=== PATIENT | male | born 1980 | race African-American/Black ===

== ENCOUNTER 2021-01-20 22:54 | Emergency (ER) | payer BC, SELFPAY ==
--- NOTE | ~2021-01-20 | XR_ITS ---
EXAMINATION: XR ankle LT min 3V EXAM DATE: 01/20/2021 23:07 INDICATION: Left ankle pain laterally, injury, initial encounter. TECHNIQUE: Left ankle frontal, lateral and oblique projections obtained and reviewed. There is no pr ior study for comparison. FINDINGS: The left ankle mortise appears intact. There are no acute fractures or dislocations ident ified. There is no subcutaneous gas. There is soft tissue swelling over the ankle anterolaterally to . There are no radiopaque foreign bodies. IMPRESSION: 1. XR ankle LT min 3V exam without acute osseous findings. 2. Soft tissue swelling. Reviewed, dictated and finalized at location A.
[2021-01-20 22:56] VITALS: BP 158/88; PULSE 95; RESP 20; TEMP 36.2; O2SAT 99
--- NOTE | 2021-01-21 00:45 | ED.GENADULT ---
HPI - General Adult General Chief complaint: Extremity Injury, Lower Stated complaint: left ankle injury Time Seen by Provider: 01/21/21 00:40 Source: RN notes reviewed History of Present Illness HPI narrative: Patient presents to emergency department from home for left ankle pain. Patient states prior to arrival he was wrestling with his 8-year-old son when his left ankle was twisted. He states since that time he has had pain and swelling in his left lateral ankle that wraps around posteriorly to the other side of his ankle states pain with walking on the ankle states did not take anything for the pain he denies any other trauma or injury denies numbness or tingling Related Data Allergies Allergy/AdvReac Type Severity Reaction Status Date / Time No Known Allergies Allergy Verified 01/20/21 22:58 Review of Systems Review of Systems: Narrative: Gen.: Denies fevers or chills Musculoskeletal: See HPI Neuro: Denies numbness, tingling, weakness Skin: Denies rash Endo: Denies DM PMFSH Past Medical History Medical History (Updated 01/21/21 @ 00:48 by Bjorn Zuniga DO) Hypertension Social History Social History (Updated 01/21/21 @ 00:46 by Bjorn Zuniga DO) Smoking status: Never smoker Exam Narrative: Exam Narrative: APPEARANCE: No acute distress, nontoxic, resting in bed Eyes: EOMI HEENT: Normocephalic, atraumatic, RESPIRATORY: No respiratory distress MUSCULOSKELETAl: Tender to palpation over left lateral malleolus with swelling present mild tenderness over the medial malleolus and posterior ankle, dorsalis pedis pulse 2+ neurovascular intact, no tenderness of the proximal fibula or the base of the fifth metatarsal, Olivas test negative NEURO: Awake and alert. Following commands, speech normal, no focal deficits SKIN:: Warm, dry. Normal Color no rash or lesions Course Course Emergency Course: Discussed with patient results of workup and diagnosis. Discussed need for follow-up with primary care, proper use of medication, and reasons to return to the emergency department. Patient understands and agrees to current treatment plan Vital Signs Vital signs: Vital Signs Temperature 97.1 F L 01/20/21 22:56 Pulse Rate 95 01/20/21 22:56 Respiratory Rate 20 01/20/21 22:56 Blood Pressure 158/88 H 01/20/21 22:56 Pulse Oximetry 99 01/20/21 22:56 Temperature 97.1 F L 01/20/21 22:56 Pulse Rate 95 01/20/21 22:56 Respiratory Rate 20 01/20/21 22:56 Blood Pressure 158/88 H 01/20/21 22:56 Pulse Oximetry 99 01/20/21 22:56 Medical Decision Making Vital Signs Vital Signs: Vital Signs Temperature 97.1 F L 01/20/21 22:56 Pulse Rate 95 01/20/21 22:56 Respiratory Rate 20 01/20/21 22:56 Blood Pressure 158/88 H 01/20/21 22:56 Pulse Oximetry 99 01/20/21 22:56 Temperature 97.1 F L 01/20/21 22:56 Pulse Rate 95 01/20/21 22:56 Respiratory Rate 20 01/20/21 22:56 Blood Pressure 158/88 H 01/20/21 22:56 Pulse Oximetry 99 01/20/21 22:56 Imaging Data Attestation: I personally reviewed and interpreted this imaging study as follows: My impression: Ankle x-ray shows no acute fracture Discharge Plan Discharge Clinical Impression: Left ankle sprain Patient Disposition: Home, Self-Care Condition: Stable Instructions: Antibiotic Form, Ankle Sprain (ED), R.I.C.E. Treatment (ED) Additional Instructions: Return for increasing pain numbness or tingling in extremities or any other symptoms of concern Prescriptions: New ibuprofen [IBU] 600 mg tablet 600 mg PO Q6H PRN (Reason: pain) Qty: 20 RF: 0 Follow-up/Referrals: PHYSICIAN,RADIO DESPATCHER [Primary Care Provider] - (Follow-up with your primary care physician in 2 to 3 days for further treatment and evaluation) Time of Disposition: 00:48
[2021-01-21] MEDS: IBUPROFEN 600 MG TABLET PO (01:02)
== END 2021-01-21 01:28 | disposition home or self-care (01) ==
LOC: ANHED 01-21 00:55
PROVIDERS: Emergency Provider Emergency Medicine; PCP Family Medicine
DX: S93.402A Sprain of unspecified ligament of left ankle, initial encounter (principal); I10 Essential (primary) hypertension; X50.9XXA Other and unspecified overexertion or strenuous movements or postures, initial encounter; Y93.83 Activity, rough housing and horseplay
CPT/HCPCS: 73610; 99283; A9270

== ENCOUNTER 2023-10-29 17:59 | Observation (INO) | payer BC, SELFPAY ==
[2023-10-29] VITALS (7 sets, daily range): BP systolic 128–182; BP diastolic 84–92; PULSE 102–144; RESP 13–20; TEMP 37.2; O2SAT 95–99
--- NOTE | ~2023-10-29 | XR_ITS ---
EXAMINATION: XR chest 2V DATE: 10/29/2023 18:29 INDICATION: Chest pain TECHNIQUE: Frontal and lateral views of the chest are obtained COMPARISON: None available FINDINGS: There are patchy airspace opacities of the lungs. No pleural effusion or pneumothorax. The cardiomediastinal silhouette is normal. There is mild thoracic spondylosis. IMPRESSION: 1. Patchy airspace opacities of the lungs, likely pneumonia. Reviewed, dictated and finalized at location F. ING ROOM SUPERVISOR
--- NOTE | ~2023-10-29 | CT_ITS ---
EXAMINATION: CTA chest PE protocol DATE: 10/29/2023 22:32 INDICATION: Chest pain TECHNIQUE: Computed tomography angiography (CTA) of the chest was performed with 100 mL Omnipaque-350 intravenous contrast timed to evaluate the pulmonary arteries. Coronal maximum intensity projection 3D-reconstructions were created by the technologist. The dose-length product (DLP) was 769.18 mGy-cm. Automated exposure control and iterative reconstruction technique were employed. COMPARISON: None. FINDINGS: The pulmonary arteries are well-opacified. No pulmonary embolism is identified. The lungs a re free of focal airspace opacities. There is some minimal dependent atelectasis. No pleural effusion or pneumothorax. No pathologically enlarged thoracic lymph nodes are identified. The heart size is n ormal. IMPRESSION: 1. No pulmonary embolism or acute cardiopulmonary abnormality. Reviewed, dictated and finalized at location F. ER HAND
--- NOTE | ~2023-10-29 | CT_ITS ---
EXAMINATION: CT brain wo con INDICATION: Headache COMPARISON: None TECHNIQUE: Standard unenhanced head CT. The dose-length product (DLP) was 681.00 mGy-cm. The mA was a djusted according to patient size. Iterative reconstruction technique was employed. FINDINGS: No intracranial hemorrhage, acute infarction, or abnormal mass lesion. The ventricles are n ormal. No abnormal mass effect or midline shift. The dewitt-white matter differentiation is normal. The basal cisterns are patent. The orbits are normal. There is mild mucosal thickening of the paranasal sinuses. IMPRESSION: 1. No acute intracranial abnormality. Reviewed, dictated and finalized at location F. PER STITCHER
--- NOTE | ~2023-10-29 | CT_ITS ---
EXAMINATION: CTA brain carotid DATE: 10/29/2023 20:37 INDICATION: Sudden onset headache TECHNIQUE: Computed tomographic angiography (CTA) of the head was performed with 100 mL Omnipaque-350 intravenous contrast. CTA of the neck was performed with intravenous contrast. The dose-length produ ct was 1249.83 mGy-cm. Maximum intensity projection and volume rendered 3D-reconstructions were creat ed by the technologist on a separate workstation. Automated exposure control and iterative reconstruc tion technique were employed. COMPARISON: CT from today FINDINGS: HEAD CTA: There is no intracranial hemorrhage, acute infarction, or abnormal mass lesion. The ventric les are normal. There is no abnormal mass effect or midline shift. The dewitt-white matter differentiat ion is normal. The basal cisterns are patent. The orbits are normal. There is mild mucosal thickening of the paranasal sinuses. There is no significant stenosis of the basilar artery or posterior cerebral arteries. There is no si gnificant stenosis of the intracranial internal carotid arteries or the anterior or middle cerebral a rteries. The anterior communicating artery and posterior communicating arteries are normal. There is no aneurysm. NECK CTA: There is a 4 mm nodule of the left thyroid lobe. The submandibular and parotid glands are s ymmetric. There is no lymphadenopathy. There are no masses identified. The airway is unremarkable. Th e superior mediastinum is unremarkable. There are no osseous abnormalities. There is 0% stenosis of the proximal right internal carotid artery relative to normal distal artery l umen diameter (NASCET criteria). There is 0% stenosis of the proximal left internal carotid artery re lative to normal distal artery lumen diameter. IMPRESSION: 1. No acute intracranial abnormality. Normal head CTA. 2. 0% stenosis of the proximal right internal carotid artery relative to normal distal artery lumen d iameter (NASCET criteria). 3. 0% stenosis of the proximal left internal carotid artery relative to normal distal artery lumen di ameter. Reviewed, dictated and finalized at location F. ICAL MEDICAL ASSISTANT IMPRESSION: 1. No acute intracranial abnormality. Normal head CTA. 2. 0% stenosis of the proximal right internal carotid artery relative to normal distal artery lumen diameter (NASCET criteria). 3. 0% stenosis of the proximal left internal carotid artery relative to normal distal artery lumen diameter.
--- NOTE | 2023-10-29 18:04 | ECG_ITS ---
Measurements Intervals [place] Rate: 130 P: CO: 0 QRS: -66 QRSD: 118 T: 64 QT: 319 QTc: 469 Interpretive Statements SINUS TACHYCARDIA INCOMPLETE RIGHT BUNDLE BRANCH BLOCK LEFT ANTERIOR FASCICULAR BLOCK ABNORMAL ECG NO PREVIOUS ECG AVAILABLE FOR COMPARISON Electronically Signed On 10-29-2023 18:57:00 PILOT PLANT TECHNICIAN by August Wang D.O.
[2023-10-29 18:19] LABS: Basophils Percent Auto 0.3 % (0.2-1.2); Hematocrit 44.9 % (42.0-52.0); Hemoglobin 14.3 g/dL (14.0-18.0); Immature Granulocyte Absolute 0.04 K/mm3 (0.00-0.031); Immature Granulocyte Percent A 0.4 % (0-0.5); Lymphocytes Absolute Auto 1.68 K/mm3 (0.9-3.2); Lymphocytes Percent Auto 16.9 % (18.3-44.2); Mean Corpuscular HGB Conc 31.8 g/dl (32-36); Mean Corpuscular Volume 84.7 fl (80-100); Mean Platelet Volume 10.3 fl (7.4-10.4); Monocytes Absolute Auto 0.9 K/mm3 (0.1-0.6); Monocytes Percent Auto 9.1 % (2.6-8.5); Neutrophils Absolute Auto 7.3 K/mm3 (1.3-6.7); Neutrophils Percent Auto 73.3 % (45.5-73.1); Platelet Count Result 268 k/mm3 (150-375); Red Cell Distribution Width 14.4 % (11.5-14.5)
[2023-10-29] MEDS: SODIUM CHLORIDE 0.9% IV 1,000 ML 999 ML IV CONT ×3 (18:20→22:49)
[2023-10-29 18:29] LABS: Potassium 3.6 mmol/L (3.4-5.0)
[2023-10-29 18:31] LABS: INR 1.1; Prothrombin Time 14.3 Seconds (11.1-14.7)
[2023-10-29 18:32] LABS: Partial Thromboplastin Time 26.3 SECONDS (22.3-36.8)
[2023-10-29 18:33] LABS: Alanine Aminotransferase 29 U/L (6-50); Albumin Level 4.8 g/dL (3.5-5.1); Alkaline Phosphatase 86 U/L (38-126); Anion Gap 14 mmol/L (8-16); Aspartate Amino Transferase 39 U/L (17-59); Blood Urea Nitrogen 12 mg/dL (9-20); Calcium 9.4 mg/dL (8.4-10.2); Carbon Dioxide 19 mmol/L (22-30); Chloride 101 mmol/L (98-107); Estimated CRCL calculation 107 ml/min; Estimated Glomerular Filt Rate > 60; Glucose 147 mg/dL (65-110); Lipase 105 U/L (23-300); Sodium 134 mmol/L (137-145)
[2023-10-29 18:41] LABS: Troponin I 0.028 ng/mL (0.000-0.034)
--- NOTE | 2023-10-29 19:43 | ED.HA ---
HPI - Headache General Chief Complaint: Chest Pain Stated Complaint: chest pain, headache Time Seen by Provider: 10/29/23 19:05 Source: patient and family Limitations: no limitations History of Present Illness HPI Narrative: Patient is a 43-year-old male presents to the emergency department accompanied by family for a headache and chest pain. Patient states around 5:00 p.m. he was scrubbing the floors when he suddenly felt a pop on the right side of his head and had a onset of a headache on the right side parietal region that was maximal in intensity upon onset, constant, has not noticed any making it better or worse, described as throbbing, admits to history of a similar headache 1.5 years ago but denies any headaches other than that 1 in the past. Patient admits to associated photophobia and nausea without any vomiting. Patient also admits to chest discomfort that started around the same time that is in the middle of his chest, described as something sitting on his chest, denies history of this discomfort in the past, denies radiation, admits to associated shortness of breath, notes that the shortness of breath is resolved and the chest discomfort is improving, did not notice any association of the chest discomfort with exertion or deep breaths, patient was given aspirin and nitro by EMS. Patient denies history of blood clots or unilateral lower extremity swelling. Patient denies any recent injuries the patient admits to a recent illness with COVID-19. Patient denies any new or change medications. Patient is to history of high blood pressure and cholesterol issues. Patient denies any history of heart disease. Patient denies illicit drug use. Family notes that the patient has a history of MDMA use. Patient denies history of IV drug use. Patient admits to consuming 1 shot of liquor today and denies regular alcohol use but admits to history of regular alcohol use and denies any history of alcohol withdrawal. Patient denies fever, nasal congestion, numbness, weakness, paresthesias, dysphonia, dysphagia, vision changes, confusion, abdominal pain. Patient admits to some mild neck stiffness with the headache. Patient denies anyone having similar symptoms around him. patient denies family history of aneurysms. Patient denies blood thinner use. Related Data Allergies Allergy/AdvReac Type Severity Reaction Status Date / Time No Known Allergies Allergy Verified 10/29/23 18:17 Review of Systems Review of Systems: A 10 system review of systems was completed on the patient and is negative except for what is stated in the HPI. Nursing and ancillary documentation was reviewed. [facility] Past Medical History Medical History (Updated 10/29/23 @ 23:14 by Klever Olmedo DO) Hypertension Social History Social History (Updated 01/21/21 @ 00:46 by Bjorn Zuniga DO) Smoking status: Never smoker Comments At time of signature, I have reviewed and agree with nursing past medical, surgical, social and family history unless otherwise noted. Please see the nursing chart for further information. There is no relevant family history pertinent to the presenting complaint. Exam Narrative: CONST: Appears in mild acute distress, sitting in the gurney in a dark room. HENMT: Head is normocephalic and atraumatic. Tacky mucous membranes. No posterior oropharynx erythema. EYES: No conjunctival icterus, injection, or pallor. PERRL. Extraocular motions intact. NECK: No meningeal signs. No carotid bruits. No palpable cervical lymphadenopathy. No JVD. RESP: Able to speak in full sentences. Normal respiratory effort. CTAB. CARDIO: Tachycardic rate. Regular rhythm. 2+ DP and radial pulses bilaterally. No murmurs. GI: Nondistended. No tenderness to palpation. Soft. : No CVA tenderness to palpation. SKIN: No rashes or lesions noted on exposed skin. NEURO: Oriented x3. Cranial nerves 2-12 intact. Visual pardo grossly intact. Motor strength
[2023-10-29] MEDS: ONDANSETRON INJ 4 MG/2 ML VIAL IV PUSH (19:54)
[2023-10-29] MEDS: LORazepam INJ (*CRX) 2 MG/ML VIAL 1 MG IV PUSH (20:19)
[2023-10-29] MEDS: PROCHLORPERAZINE EDISYLATE 10 MG/2 ML VIAL IV PUSH (20:19)
[2023-10-29 20:30] LABS: Fractional Inspired Oxygen 21 %; HCO3 VBG 21.7 mEq/l (24.0-30.0); PCO2 VBG 34.2 mmHg (42.0-48.0); PO2 VBG 72.5 mmHg (35.0-45.0)
[2023-10-29 20:37] LABS: Device ROOM AIR; pH VBG 7.421 (7.300-7.400)
[2023-10-29 20:44] LABS: D Dimer 0.54 ug/mL (<0.48)
[2023-10-29 20:45] LABS: Ethanol < 10 mg/dL (<10)
[2023-10-29 20:53] LABS: Amphetamine Screen Urine Negative (Negative); Barbiturate Screen Urine Negative (Negative); Benzodiazepines Screen Urine Negative (Negative); Cannabinoid Screen Urine Negative (Negative); Cocaine Screen Urine Negative (Negative); Magnesium 1.7 mg/dL (1.6-2.3); Methadone Screen Urine Negative (Negative); Opiate Screen Urine Negative (Negative); Phencyclidine Screen Urine Negative (Negative)
[2023-10-29 21:03] LABS: NT Pro B Type Natriuretic Pept 137 pg/mL (19.9-100)
[2023-10-29] MEDS: KETOROLAC 15 MG/ML VIAL (*BKC) IV PUSH (21:16)
[2023-10-29 21:42] LABS: Thyroid Stimulating Hormone Reflex 0.427 uIU/mL (0.465-4.68)
[2023-10-29] MEDS: MAGNESIUM SULF 1 GM/D5W 100 ML 1 GM/100 ML BAG IVPB (21:44)
[2023-10-29 22:24] LABS: Troponin I 0.038 ng/mL (0.000-0.034)
--- NOTE | 2023-10-29 22:42 | ECG_ITS ---
Measurements Intervals [place] Rate: 105 P: 49 WV: 166 QRS: -49 QRSD: 125 T: 14 QT: 361 QTc: 477 Interpretive Statements SINUS TACHYCARDIA INCOMPLETE RIGHT BUNDLE BRANCH BLOCK LEFT ANTERIOR FASCICULAR BLOCK BASELINE ARTIFACT- I, II, III ABNORMAL ECG COMPARED TO ECG 10/29/2023 18:07:54 NO SIGNIFICANT CHANGES Electronically Signed On 10-30-2023 6:29:51 OSTEOPATHY DOCTOR by August Wang D.O.
[2023-10-29 22:44] LABS: Influenza A QL RT-PCR Negative (Negative); Influenza B QL RT-PCR Negative (Negative); RSV RNA, RT-PCR Negative (Negative); SARS-CoV-2 RNA PCR Negative (Negative)
[2023-10-29 23:08] LABS: Total Triiodothyronine (T3) 1.32 NG/ML (0.97-1.69)
--- NOTE | 2023-10-29 23:10 | PM.IMHP ---
H&P: HPI History of Present Illness Date/Time: 10/29/23 23:10 Chief Complaint: headache Narrative: This is a 43-year-old male past medical history significant for hypertension, generalized anxiety disorder, depression. Presents to the emergency room with a headache, pain and of 10 in intensity, localized to the frontal area. Patient has been his usual state of health prior to this although had a cold 2 weeks ago denies any fevers, rigors, chills, nausea, vomiting, vision changes however had photophobia. In emergency room patient was found to have systolic blood pressure in the 180s. Preliminary workup was significant for a troponin that was elevated. Patient has been placed in observation for further evaluation management and treatment. EXAMINATION: CT brain wo con ? INDICATION: Headache ? COMPARISON: None TECHNIQUE: Standard unenhanced head CT. The dose-length product (DLP) was 681.00 mGy-cm. The mA was adjusted according to patient size. Iterative reconstruction technique was employed. ? FINDINGS: No intracranial hemorrhage, acute infarction, or abnormal mass lesion. The ventricles are normal. No abnormal mass effect or midline shift. The dewitt-white matter differentiation is normal. The basal cisterns are patent. The orbits are normal. There is mild mucosal thickening of the paranasal sinuses. ? IMPRESSION: 1. No acute intracranial abnormality. EXAMINATION: CTA brain carotid DATE: 10/29/2023 20:37 INDICATION: Sudden onset headache TECHNIQUE: Computed tomographic angiography (CTA) of the head was performed with 100 mL Omnipaque-350 intravenous contrast. CTA of the neck was performed with intravenous contrast. The dose-length product was 1249.83 mGy-cm. Maximum intensity projection and volume rendered 3D-reconstructions were created by the technologist on a separate workstation. Automated exposure control and iterative reconstruction technique were employed. COMPARISON: CT from today FINDINGS: HEAD CTA: There is no intracranial hemorrhage, acute infarction, or abnormal mass lesion. The ventricles are normal. There is no abnormal mass effect or midline shift. The dewitt-white matter differentiation is normal. The basal cisterns are patent. The orbits are normal. There is mild mucosal thickening of the paranasal sinuses. There is no significant stenosis of the basilar artery or posterior cerebral arteries. There is no significant stenosis of the intracranial internal carotid arteries or the anterior or middle cerebral arteries. The anterior communicating artery and posterior communicating arteries are normal. There is no aneurysm. NECK CTA: There is a 4 mm nodule of the left thyroid lobe. The submandibular and parotid glands are symmetric. There is no lymphadenopathy. There are no masses identified. The airway is unremarkable. The superior mediastinum is unremarkable. There are no osseous abnormalities. There is 0% stenosis of the proximal right internal carotid artery relative to normal distal artery lumen diameter (NASCET criteria). There is 0% stenosis of the proximal left internal carotid artery relative to normal distal artery lumen diameter. IMPRESSION: 1. No acute intracranial abnormality. Normal head CTA. 2. 0% stenosis of the proximal right internal carotid artery relative to normal distal artery lumen diameter (NASCET criteria). 3. 0% stenosis of the proximal left internal carotid artery relative to normal distal artery lumen diameter. EXAMINATION: XR chest 2V DATE: 10/29/2023 18:29 INDICATION: Chest pain TECHNIQUE: Frontal and lateral views of the chest are obtained COMPARISON: None available FINDINGS: There are patchy airspace opacities of the lungs. No pleural effusion or pneumothorax. The cardiomediastinal silhouette is normal. There is mild thoracic spondylosis. IMPRESSION: 1. Patchy airspace opacities of the lungs, likely pneumonia. Review of Systems Review of Systems: Headache Const
[2023-10-30] VITALS (12 sets, daily range): BP systolic 135–154; BP diastolic 83–90; PULSE 87–98; RESP 13–16; TEMP 36.2–36.6; O2SAT 94–99; BMI 34.2; BMI 33.7
--- NOTE | 2023-10-30 | ECHO_ITS ---
Patient Info Name: Mario Montaño Age: 43 years : 1980 Gender: Male Ht: 71 in Wt: 245 lbs BSA: 2.40 m2 HR: 90 bpm BP: 154 / 83 mmHg Heart Rhythm: Sinus Rhythm Technical Quality: Fair Exam Date: 10/30/2023 9:26 AM Exam Location: Echo Lab Exam Room: 214 Patient Status: Inpatient Admit Date: 10/29/2023 Staff Ordering Physician: Robe Ray MD Grommet Machine Operator: Talisha Schilling RDCS Attending Provider: Robe Ray MD Referring Physician: Cory SHEN; Exam Type: CA echo doppler color flow Study Info Indications - uncontrolled htn chest pain Complete two-dimensional, color flow and Doppler transthoracic echocardiogram is performed. Summary 1. Complete two-dimensional, color flow and Doppler transthoracic echocardiogram is performed. 2. Left ventricular chamber dimension is normal. 3. Left ventricular systolic function is normal, estimated at 60-65%. 4. There is mild concentric increased left ventricular wall thickness. 5. The left ventricular diastolic function is grade I diastolic dysfunction. 6. E/e' 9 is minimally elevated. 7. There is trace tricuspid valve regurgitation. 8. No pulmonary hypertension, estimated pulmonary arterial systolic pressure is 27 mmHg. Left Ventricle E/e' 9 is minimally elevated. Left ventricular chamber dimension is normal. Left ventricular systolic function is normal, estimated at 60-65%. There is mild concentric increased left ventricular wall thickness. The left ventricular diastolic function is grade I diastolic dysfunction. Right Ventricle Right ventricular chamber dimension is normal. Right ventricular systolic function is normal. Left Atria Left atrial chamber dimension is normal. Right Atria Right atrial chamber dimension is normal. Aortic Valve The aortic valve is trileaflet. There is no aortic valve stenosis. There is no aortic valve regurgitation. Pulmonic Valve There is no pulmonic regurgitation. Mitral Valve There is no mitral valve stenosis. There is no mitral valve regurgitation. Tricuspid Valve There is trace tricuspid valve regurgitation. No pulmonary hypertension, estimated pulmonary arterial systolic pressure is 27 mmHg. Pericardium/Pleural There is no pericardial effusion. Inferior Vena Cava Normal inferior vena cava with >50% collapse upon inspiration consistent with normal right atrial pressure, 5 mmHg. Aorta The aortic root size at the sinus of Valsalva is normal. Left Ventricular Outflow Tract Name Value Normal LVOT 2D LVOT Diameter 2.1 cm LVOT Doppler LVOT Peak Gradient 5 mmHg LVOT Mean Gradient 3 mmHg LVOT VTI 21 cm LVOT VTI/AV VTI Ratio 0.9 LVOT Stroke Volume 77 ml LVOT CO 17.6 l/min LVOT CI 7.4 l/min/m2 Pulmonic Valve Name Value Normal PV Doppler
[2023-10-30] MEDS: SODIUM CHLORIDE 0.9% IV 1,000 ML 125 ML IV CONT ×2 (00:25→09:23)
--- NOTE | 2023-10-30 00:25 | ADMGEN ---
This patient, Mario Montaño Jr., was admitted to IMU Room 214-01. Patient/family oriented to hospital policies and general routines including ID bracelet, bed and alarms, visiting hours, pain management, procedures, bathroom and other care routines, personal items, smoking policy, room service/diet, and visiting hours. Information on how to activate the Rapid Response Team has been discussed. Patient/Family are encouraged to report perceived risks to care and to ask questions if they do not understand what they are told or what they should do.
[2023-10-30] MEDS: traZODone HCL 50 MG TABLET PO (00:56)
[2023-10-30 03:04] LABS: Troponin I 0.028 ng/mL (0.000-0.034)
[2023-10-30 04:52] LABS: Hematocrit 41.3 % (42.0-52.0); Hemoglobin 13.2 g/dL (14.0-18.0); Mean Corpuscular Hemoglobin 27.3 pg (26-34); Mean Corpuscular Volume 85.5 fl (80-100); Mean Platelet Volume 10.4 fl (7.4-10.4); Platelet Count Result 237 k/mm3 (150-375); Red Blood Count 4.83 M/mm3 (4.6-6.20); Red Cell Distribution Width 14.3 % (11.5-14.5); White Blood Count 8.4 K/mm3 (4.5-10.0)
[2023-10-30 05:07] LABS: Potassium 3.7 mmol/L (3.4-5.0)
[2023-10-30 05:13] LABS: Anion Gap 7 mmol/L (8-16); Blood Urea Nitrogen 7 mg/dL (9-20); Calcium 8.7 mg/dL (8.4-10.2); Carbon Dioxide 26 mmol/L (22-30); Chloride 106 mmol/L (98-107); Estimated CRCL calculation 118 ml/min; Estimated Glomerular Filt Rate > 60; Glucose 86 mg/dL (65-110); Sodium 139 mmol/L (137-145)
[2023-10-30 07:38] LABS: Phosphorus 3.1 mg/dL (2.5-4.5)
[2023-10-30] MEDS: ATORVASTATIN 20 MG TABLET PO (08:33)
[2023-10-30] MEDS: ESCITALOPRAM OXALATE 10 MG TABLET 20 MG PO (08:33)
[2023-10-30] MEDS: amLODIPine BESYLATE 5 MG TABLET 10 MG PO (08:33)
[2023-10-30] MEDS: METOPROLOL SUCCINATE EXT REL 50 MG TABCR PO (08:34)
--- NOTE | 2023-10-30 14:57 | PM.CNCAR ---
Assessment and Plan Assessment and plan (1) Elevated troponin: Code(s): R79.89 - Other specified abnormal findings of blood chemistry Status: Acute Plan This is a 43-year-old man who had some unusual symptoms as detailed in the history above after scrubbing his shower in his home. None of the symptoms are at all concerning for a coronary event in my opinion. For some reason troponin levels were sampled and the 1st sample was barely out of normal range with the Gonzales sample being normal. There is no other reason in my opinion to be considering ischemic heart disease in this gentleman I believe he is stable to be discharged for follow-up with his PCP he does not need ischemic testing at this time Celestine Ruffin MD [facility] History of Present Illness History of Present Illness Consult date/time: 10/30/23 14:57 Reason For Visit: NSTEMI Narrative: This is a 43-year-old man I am seeing at the request of the hospitalist because of elevation in troponin and chest pain. He has no history of cardiac problems in the past and came to the hospital after experiencing some concerning symptoms after he was scrubbing the floor of his shower at home. He was scrubbing the floor of the shower with some comment cleanser and suddenly felt unwell with the sense of some throbbing and pain in the side of his head. After this he had the sense that his heart was beating rapidly and there was some mild sense of pain in his chest. He came to the emergency room where his electrocardiogram was found to have no evidence of myocardial injury or ischemia. His troponin level was just out of normal range at 0.03 and the 2nd sample was normal. In this setting I was asked to see him in consultation and for some reason he was given the diagnosis of non ST elevation CT. He feels well at this time and does not have any complaints. He states that in his usual a healthy considers himself to be doing well he does have longstanding hypertension and dyslipidemia which are well controlled medically. He does not have any family history of premature ischemic heart disease. 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 He states that he had a stress test he thinks about a decade ago that was recommended by his PCP is part of his hypertension workup. His recollection is that test was unremarkable Review of Systems Constitutional: Constitutional: Reports no additional constitutional complaints Eyes: Eyes: Reports no additional eye complaints ENT: Reports system reviewed and no additional complaints, except as documented Cardiovascular: Cardiovascular: Reports as per HPI Respiratory: Respiratory: Reports no additional respiratory complaints Gastrointestinal: Gastrointestinal: Reports no additional gastrointestinal complaints Musculoskeletal: Musculoskeletal: Reports no additional musculoskeletal complaints Integumentary/Breasts: Skin/Breast: Reports system reviewed and no additional complaints, except as docu Neurologic: Reports as per HPI Endocrine: Endocrine: Reports no additional endocrine complaints Hematologic/Lymphatic: Hematologic/Lymphatic: Reports no additional hematologic/lymphatic complaints Allergic/Immunologic: Allergic/Immunologic: Reports no additional allergic/immunologic complaints [facility] Past Medical History Medical History (Updated 10/29/23 @ 23:14 by Klever Olmedo DO) Hypertension Social History Social History (Updated 01/21/21 @ 00:46 by Bjorn Zuniga DO) Smoking status: Never smoker Alcohol intake: never Substance use: never Do You Feel Safe in your Home?: Yes Lack of Transportation: No Lack of Food: Never True Current Housing: I Have Housing Concerned About Future Housing: No Difficulty Paying Gas/Electric Bills: No Di
--- NOTE | 2023-10-30 15:42 | PM.DS ---
DS: Admitting Diagnosis Discharge Date 10/30/23 Admitting Diagnosis Chest pain and headache DS: Discharge Diagnosis Discharge Diagnosis (1) Elevated troponin: Code(s): R79.89 - Other specified abnormal findings of blood chemistry Status: Acute (2) Chest pain: Qualifiers: Chest pain type: unspecified Qualified Code(s): R07.9 - Chest pain, unspecified Code(s): R07.9 - Chest pain, unspecified Status: Acute (3) Headache: Qualifiers: Headache type: primary thunderclap headache Qualified Code(s): G44.53 - Primary thunderclap headache Code(s): R51.9 - Headache, unspecified Status: Acute (4) Hypertension: Code(s): I10 - Essential (primary) hypertension Status: Acute DS: Summary Hospital Course Reason for hospitalization: 43yo male with HTN, ALESSIA and depression here for headache and chest pain. Please see H&P for details. Hospital Course: Patient presents to the ED for headache and chest pain. 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 He became anxious and then developed chest pain prompting him to come to the ED. In the ED, BP 182/84 and tachycardic at 144. EKG showing sinus tachycardia (130), incomplete Rt BBB and LAFB. Repeat EKG showing no change. Troponin peaked at 0.038 not felt to be clinically significant. Influenza, RSV an COVID PCR were negative. Alcohol and UDS negative. TSH low at 0.4 but FT4 normal. CMP normal except for serum bicarb 19 (normal on repeat). VBG 7.42/34/72 on RA. BNP 137. DDimer elevated at 0.54. CXR showing possible PNA but CTA chest was negative for PE and showed no acute cardiopulmonary disease. Head CT showing no acute findings. CTA head and neck showing no acute findings. Echo showing EF 60-65%, mild concentric LV wall thickness and GIDD. He was treated symptomatically. His symptoms resolved. Cardiology consulted but felt chest pain was not related to cardiac ischemia. He was able to be discharged home on 10/30/23 Status at Discharge Cognitive/behavioral status at discharge: stable Time Spent with Patient Time attestation: Total time spent providing and/or coordinating discharge services: 32 minutes Time spent: Greater than 30 minutes Exam Narrative: AF 97.4 142/90 87 15 98% ra Gen - NARD Chest - CTA bilaterally, nml RR CV - RRR S1/S2 Abd - Soft, NT/ND, Positive BS Ext - No pedal edema Neuro - Alert and oriented. Nonfocal exam. Psych - Nml mood and affect Skin - Warm and dry DS: Data Data Completed and Pending Labs on day of discharge: Labs from last 24 hours 10/30/23 10/30/23 10/29/23 04:30 00:23 21:51 WBC 8.4 RBC 4.83 Hgb 13.2 L Hct 41.3 L MCV 85.5 MCH 27.3 MCHC 32.0 RDW 14.3 Plt Count 237 MPV 10.4 Immature Gran % (Auto) Neut % (Auto) Lymph % (Auto) [place] % (Auto) Eos % (Auto) Baso % (Auto) Lymph # (Auto) [place] # (Auto) Eos # (Auto) Baso # (Auto) Abs Immat Gran (auto) Absolute Neuts (auto) Absolute Nucleated RBC Nucleated RBC % PT INR APTT D-Dimer VBG pH VBG pCO2 VBG pO2 VBG HCO3 O2 Delivery Device O2 Liters/Min FiO2 Sodium 139 Potassium 3.7 Chloride 106 Carbon Dioxide 26 Anion Gap 7 L BUN 7 L D Creatinine 0.90 Estim Creat Clear Calc 118 Estimated GFR > 60 Glucose 86 Lactic Acid Calcium 8.7 Phosphorus 3.1 Magnesium 2.0 Total Bilirubin AST ALT Alkaline Phosphatase Troponin I 0.028 D 0.038 H* D NT-Pro-B Natriuret Pep Total Protein Albumin Lipase TSH (Reflex) Free T4 Total T3 Urine Opiates Screen Urine Methadone Screen Ur Barbiturates Screen Ur Phencyclidine Scrn Ur Amphetamine Screen U Benzodiazepines Scrn Urine Cocaine Screen U Cannabinoids Screen Ethyl Alcohol Infl
== END 2023-10-30 16:37 | disposition home or self-care (01) ==
LOC: ANHED 23:11 → ANHIMU 23:54
PROVIDERS: Emergency Medicine; Admitting Provider Internal Medicine; Emergency Provider Student in an Organized Health Care Education/Training Program; PCP Family Medicine; Visit Provider Internal Medicine
DX: R07.9 Chest pain, unspecified (principal); G44.53 Primary thunderclap headache; I11.9 Hypertensive heart disease without heart failure; R79.89 Other specified abnormal findings of blood chemistry; R00.0 Tachycardia, unspecified; E78.5 Hyperlipidemia, unspecified; I45.10 Unspecified right bundle-branch block; F41.1 Generalized anxiety disorder; F32.A Depression, unspecified; I44.4 Left anterior fascicular block; Z20.822 Contact with and (suspected) exposure to COVID-19; Z86.16 Personal history of COVID-19; Z79.899 Other long term (current) drug therapy
CPT/HCPCS: 36415; 70450; 70496; 70498; 71046; 71275; 80048; 80053; 80307; 82803; 83605; 83690; 83735; 83880; 84100; 84439; 84443; 84480; 84484; 85025; 85027; 85380; 85610; 85730; 87637; 93005; 93306; 96361; 96365; 96375; 99285; A9270; G0378; J0780; J1885; J2060; J2405; J3475; J7030; Q9967